=== PATIENT | female | born 1995 | race Caucasian/White ===

== ENCOUNTER 2018-05-15 11:31 | Inpatient (IN) ==
[2018-05-15] MEDS ORDERED: NS 1,000 ML IV ONE (12:16)
[2018-05-15] MEDS ORDERED: MORPHINE IV ONE ×3 (12:16→16:13)
[2018-05-15] MEDS ORDERED: ZOFRAN IV ONE (12:16)
[2018-05-15 12:41] LABS: URINE SOURCE CLEAN CATCH
[2018-05-15 12:46] LABS: BILIRUBIN URINE NEGATIVE (NEGATIVE); BLOOD URINE NEGATIVE (NEGATIVE); COLOR YELLOW; GLUCOSE URINE NEGATIVE (NEGATIVE); KETONE URINE NEGATIVE (NEGATIVE); LEUKOCYTES URINE LARGE (NEGATIVE); NITRITE URINE NEGATIVE (NEGATIVE); PROTEIN URINE 50 mg/dL (NEGATIVE); SP GRAVITY URINE 1.028; TURBIDITY URINE HAZY (CLEAR); UROBILINOGEN URINE 3 mg/dL (NORMAL)
[2018-05-15 12:46] LABS: BASO# 0.03 X1000 (0.0-0.2); BASO% 0.1 % (0.0-0.8); EOS# 0.12 X1000 (0.0-0.7); EOS% 0.5 % (0.0-10.0); HEMATOCRIT 43.5 % (37.0-47.0); HEMOGLOBIN 14.3 g/dL (12.0-16.0); IMM GRAN% 0.4 % (0.0-0.5); LYMPH# 2.29 X1000 (1.2-3.4); LYMPH% 9.3 % (20.5-51.1); MCH 30.8 PG (27-31); MCHC 32.9 g/dL (33-37); MCV 93.8 FL (81-99); MONO# 3.06 X1000 (0.11-0.59); MONO% 12.4 % (1.7-9.3); MPV 10.7 FL (7.4-10.4); NEUT# 19.09 X1000 (1.4-6.5); NEUT% 77.3 % (42.2-75.2); PLT 290 X1000 (130-400); RBC 4.64 XMIL (4.2-5.4); RDW 13.5 % (11.5-14.5); WBC 24.69 X1000 (4.8-10.8)
[2018-05-15 12:47] LABS: UR EPITHELIAL CELLS >10 /HPF (<10); URINE BACTERIA 2+ /HPF; URINE RBC <10 /HPF (<10); URINE WBC TNTC /HPF (<10)
[2018-05-15] MEDS ORDERED: MEFOXIN 2 GM/NS 2 GM/50 ML IVPB IV ONE (12:49)
[2018-05-15 13:06] LABS: AGAP 13; ALB/GLOB RATIO 1.1; ALBUMIN 4.2 g/dL (3.5-5.0); ALKALINE PHOSPHATASE 90 U/L (32-104); BUN 9 mg/dL (8-22); CALCIUM 9.4 mg/dL (8.8-10.2); CHLORIDE 100 mmol/L (98-107); COSMO 273; CREATININE 0.7 mg/dL (0.5-0.9); ESTIMATED GFR > 60; GLUCOSE 99 mg/dL (70-104); GOT 9 U/L (10-30); GPT 9 U/L (10-36); POTASSIUM 4.1 mmol/L (3.5-5.1); SODIUM 137 mmol/L (136-145); TCO2 24 mmol/L (25-35); TOTAL BILIRUBIN 0.63 mg/dL (0.20-1.00); TOTAL PROTEIN 7.9 g/dL (6.3-8.3)
--- NOTE | 2018-05-15 14:18 | Diag Imaging Result Doc PS360 ---
EXAM: CT ABD/PELVIS W/IV CONT ONLY INDICATION: RLQ abdominal pain, suspecting acute appendicitis TECHNIQUE: This exam was performed using automated exposure control, adjustment of mA or kV according to patient size, and/or use of iterative reconstruction technique. COMPARISON: 08/25/2016 FINDINGS: The liver is somewhat prominent measuring up to 20 cm in the craniocaudal dimension in the coronal plane. The liver is unremarkable, otherwise. The gallbladder, spleen, pancreas, adrenal glands, kidneys, and urinary bladder are unremarkable. The appendix is identified and is normal. However, there is a serpentine dilated tubular structure containing fluid in the pelvis on the right with surrounding inflammatory stranding. This does not appear to represent bowel. It is suspicious for hydrosalpinx. It measures up to 2.5 cm in diameter. There is a similar smaller structure on the left that may represent left hydrosalpinx as well. Pelvic inflammatory disease cannot be excluded. Please correlate clinically. There is a 2.4 cm cystic structure that appears to be associated with the right ovary. The GI tract is grossly unremarkable. IMPRESSION: 1.Dilated and fluid-filled serpentine structure in the pelvis on the right and smaller similar structure on the left with surrounding inflammatory changes suspicious for hydrosalpinx. Pelvic inflammatory disease cannot be excluded. 2.Normal appendix. Electronically signed by Mike Santizo 05/15/2018 2:15 PM
[2018-05-15] MEDS ORDERED: DOXYCYCLINE 100 MG in NS 250 ML IV ONE (14:32)
[2018-05-15] MEDS ORDERED: ROCEPHIN 1 GM in NS 50 ML IV ONE (14:32)
[2018-05-15] MEDS ORDERED: FLAGYL PO ONE (15:12)
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
[2018-05-15] MEDS ORDERED: DEMEROL IV PRN (17:32)
[2018-05-15] MEDS ORDERED: SODIUM CHLORIDE 0.9% INJ PRN (17:32)
[2018-05-15] MEDS ORDERED: TYLENOL PO PRN (17:40)
[2018-05-15] MEDS ORDERED: FLAGYL 500 MG/NS 500 MG/100 ML IVPB IV SCH (18:00)
[2018-05-15] MEDS: LR 1,000 ML IV SCH (20:07)
[2018-05-15] MEDS: PHENERGAN IV PRN (20:08)
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
[2018-05-15] MEDS: ZOFRAN IV PRN (23:29)
[2018-05-15] MEDS: MORPHINE IV PRN (23:29)
[2018-05-16] MEDS: FLAGYL 500 MG/NS 500 MG/100 ML IVPB IV SCH ×2 (01:41→13:49)
[2018-05-16] MEDS: ROCEPHIN 1 GM in NS 50 ML IV SCH ×2 (01:41→13:49)
[2018-05-16] MEDS: MORPHINE IV PRN ×6 (03:19→23:36)
[2018-05-16] MEDS: DOXYCYCLINE 100 MG in NS 250 ML IV SCH ×2 (03:19→15:31)
[2018-05-16 07:41] LABS: BASO# 0.03 X1000 (0.0-0.2); BASO% 0.2 % (0.0-0.8); EOS% 0.6 % (0.0-10.0); HEMATOCRIT 38.9 % (37.0-47.0); HEMOGLOBIN 12.8 g/dL (12.0-16.0); IMM GRAN# 0.05 X1000 (0.0-0.04); IMM GRAN% 0.3 % (0.0-0.5); LYMPH# 2.75 X1000 (1.2-3.4); LYMPH% 15.3 % (20.5-51.1); MCH 30.9 PG (27-31); MCHC 32.9 g/dL (33-37); MONO% 14.4 % (1.7-9.3); MPV 10.9 FL (7.4-10.4); NEUT# 12.49 X1000 (1.4-6.5); NEUT% 69.2 % (42.2-75.2); PLT 270 X1000 (130-400); RBC 4.14 XMIL (4.2-5.4); RDW 13.4 % (11.5-14.5); WBC 18.02 X1000 (4.8-10.8)
[2018-05-16] MEDS: ZOFRAN IV PRN (07:54)
[2018-05-16] MEDS: LR 1,000 ML IV SCH ×2 (09:19→23:41)
[2018-05-17] MEDS: LR 1,000 ML IV SCH ×3 (00:45→22:12)
[2018-05-17] MEDS: ROCEPHIN 1 GM in NS 50 ML IV SCH ×3 (01:47→13:46)
[2018-05-17] MEDS: FLAGYL 500 MG/NS 500 MG/100 ML IVPB IV SCH ×2 (02:20→13:44)
[2018-05-17] MEDS: DOXYCYCLINE 100 MG in NS 250 ML IV SCH ×2 (03:37→14:54)
[2018-05-17] MEDS: MORPHINE IV PRN ×4 (03:37→22:07)
[2018-05-17 06:58] LABS: BASO# 0.04 X1000 (0.0-0.2); BASO% 0.2 % (0.0-0.8); EOS% 1.2 % (0.0-10.0); HEMATOCRIT 33.5 % (37.0-47.0); HEMOGLOBIN 10.8 g/dL (12.0-16.0); IMM GRAN# 0.07 X1000 (0.0-0.04); IMM GRAN% 0.4 % (0.0-0.5); LYMPH# 3.12 X1000 (1.2-3.4); LYMPH% 19.3 % (20.5-51.1); MCH 30.3 PG (27-31); MCHC 32.2 g/dL (33-37); MCV 94.1 FL (81-99); MONO# 2.52 X1000 (0.11-0.59); MONO% 15.6 % (1.7-9.3); MPV 10.9 FL (7.4-10.4); NEUT# 10.18 X1000 (1.4-6.5); NEUT% 63.3 % (42.2-75.2); PLT 251 X1000 (130-400); RBC 3.56 XMIL (4.2-5.4); RDW 13.3 % (11.5-14.5); WBC 16.13 X1000 (4.8-10.8)
[2018-05-17] MEDS: ZOFRAN IV PRN ×2 (07:45→15:52)
--- NOTE | 2018-05-17 11:17 | OB/GYN PROGRESS NOTE ---
Progress Note HEAD OF CONSERVATION - . Patient Problems: Current Active Problems Problem Status Onset Tobacco abuse disorder Acute PID (acute pelvic inflammatory disease) Acute Hydrosalpinx Acute HEAD OF CONSERVATION Progress Note: Vital Signs - 24 hr 05/16/18 12:37 05/16/18 16:31 05/16/18 20:28 Temperature 98.1 F 98.3 F 98.4 F Pulse Rate 62 74 81 Respiratory Rate 16 18 18 Blood Pressure 106/52 119/81 109/50 O2 Sat by Pulse Oximetry 100 95 100 05/17/18 03:00 05/17/18 07:59 Temperature 97.5 F L 98.0 F Pulse Rate 55 L 57 L Respiratory Rate 16 19 Blood Pressure 113/40 104/56 O2 Sat by Pulse Oximetry 100 99 05/15/18 12:51 Urine Culture - Final Urine,Clean Catch Escherichia Coli Laboratory Results - last 24 hr 05/17/18 06:29 WBC 16.13 H RBC 3.56 L Hgb 10.8 L D Hct 33.5 L MCV 94.1 MCH 30.3 MCHC 32.2 L RDW Std Deviation 13.3 Plt Count 251 MPV 10.9 H Immature Gran % (Auto) 0.4 Neut % (Auto) 63.3 Lymph % (Auto) 19.3 L [place] % (Auto) 15.6 H Eos % (Auto) 1.2 Baso % (Auto) 0.2 Immature Gran # (Auto) 0.07 H Neut # (Auto) 10.18 H Lymph # (Auto) 3.12 [place] # (Auto) 2.52 H Eos # (Auto) 0.20 Baso # (Auto) 0.04 Pain better, requesting shower AF VSS Alert, oriented Lungs: CTA + mild CVAT Abd: lower quadrant tenderness, no rebound Calves: Nontender Urine culture: E coli sensitive to Ceftriaxone Assess: UTI treated appropriately Possible PID, certainly suspicious for past PID event with hydrosalpinges Plan: Regular diet Continue antibiotics Probable discharge when afebrile and without tenderness x 48 hours Pt agreeable
[2018-05-17] MEDS: PHENERGAN IV PRN (22:10)
[2018-05-18] MEDS: ROCEPHIN 1 GM in NS 50 ML IV SCH ×3 (02:30→14:44)
[2018-05-18] MEDS: MORPHINE IV PRN ×2 (02:39→06:51)
[2018-05-18] MEDS: FLAGYL 500 MG/NS 500 MG/100 ML IVPB IV SCH ×2 (03:00→14:00)
[2018-05-18] MEDS: DOXYCYCLINE 100 MG in NS 250 ML IV SCH ×2 (04:00→15:18)
[2018-05-18] MEDS: LR 1,000 ML IV SCH ×3 (04:35→08:24)
--- NOTE | 2018-05-18 08:05 | OB/GYN PROGRESS NOTE ---
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 Only mild flank pain on right Remains afebrile, VSS Alert, oriented No right CVAT ABD: Soft, nontender CBC as above Assess: Pyelo under appropriate treatment PID, chronic, possible active component with antibiotic coverage; decreasing WBC and symptom trend. Plan: Probable home tomorrow if stability remains
[2018-05-18] MEDS: ZOFRAN IV PRN (08:53)
[2018-05-18 09:27] LABS: BASO# 0.03 X1000 (0.0-0.2); BASO% 0.2 % (0.0-0.8); EOS# 0.12 X1000 (0.0-0.7); EOS% 0.8 % (0.0-10.0); HEMATOCRIT 34.9 % (37.0-47.0); HEMOGLOBIN 11.4 g/dL (12.0-16.0); IMM GRAN# 0.06 X1000 (0.0-0.04); IMM GRAN% 0.4 % (0.0-0.5); LYMPH# 2.67 X1000 (1.2-3.4); LYMPH% 18.5 % (20.5-51.1); MCH 30.1 PG (27-31); MCHC 32.7 g/dL (33-37); MCV 92.1 FL (81-99); MONO# 1.82 X1000 (0.11-0.59); MONO% 12.6 % (1.7-9.3); MPV 10.4 FL (7.4-10.4); NEUT# 9.77 X1000 (1.4-6.5); NEUT% 67.5 % (42.2-75.2); PLT 285 X1000 (130-400); RBC 3.79 XMIL (4.2-5.4); RDW 13.2 % (11.5-14.5); WBC 14.47 X1000 (4.8-10.8)
[2018-05-19] MEDS: ROCEPHIN 1 GM in NS 50 ML IV SCH ×2 (01:35→02:10)
[2018-05-19] MEDS: LR 1,000 ML IV SCH ×2 (02:06→04:16)
[2018-05-19] MEDS: MORPHINE IV PRN ×2 (02:25→08:28)
[2018-05-19] MEDS: FLAGYL 500 MG/NS 500 MG/100 ML IVPB IV SCH (02:57)
[2018-05-19 07:42] VITALS: BP 110/63
[2018-05-19] MEDS: DOXYCYCLINE 100 MG in NS 250 ML IV SCH (08:14)
--- NOTE | 2018-05-20 04:46 | DISCHARGE SUMMARY ---
ADMISSION DATE: 05/15/2018 DISCHARGE DATE: 05/19/2018 HOSPITAL COURSE: Ms. Wilder is a pleasant 22-year-old G0 who was admitted on 05/15/2018 with right upper quadrant pain, right lower quadrant pain and right flank pain to [facility]. She was subsequently transferred to [facility] after a CT scan showed suspicious findings for pelvic inflammatory disease. She was admitted by Dr. Cadena on that day. She apparently did not receive cervical cultures, but did receive a urinary culture which eventually grew out E. Coli as source of her pyelonephritis. The findings on CT compatible with hydrosalpinges was also noted, and she was treated for pelvic inflammatory disease through the IV as well as urinary tract infection. Her antibiotics included ceftriaxone 1 g q.12 hours, doxycycline hyclate 100 mg q.12 hours, and Flagyl 500 mg q.12 hours. Over the course of 3 days she became afebrile, vital signs were stable and she was pain free. An extra 24 hours of medication and observation were continued and she remained stable. She is ambulating, tolerating diet, voiding without difficulty, and is ready for discharge in outpatient care. She is a long- term patient of Dr. Gavin Holloway and will follow with him in 2 weeks. PHYSICAL EXAMINATION: Vital Signs: Temperature is 98 degrees, pulse rate 80, respiration rate 17, blood pressure 110/63. General: She is alert and oriented. Lungs: Clear except for occasional rhonchi compatible with her smoking habit. There no rales. Cardiovascular: Regular rate and rhythm. No flank pain or no CVA tenderness is noted on exam on day of discharge. Abdomen: Soft without tenderness. Extremities: Calves are nontender. LABS: E. coli was grown from urine culture and showed sensitivity to ceftriaxone. ASSESSMENT: 1. Pyelonephritis, resolved with intravenous antibiotics. 2. Probable pelvic inflammatory disease, either chronic or acute in nature sufficiently treated intravenously in the hospital. We will continue antibiotics for a completion of 10 days, which will end 05/25/2018. PLAN: Discharge home. She is given doxycycline hyclate 100-mg capsule to be taken twice a day for an additional 7 days. She is not given any kind of analgesic as none is needed. She will follow up with Dr. Holloway in 2 weeks. She is instructed to return to the emergency department or office for any unusual fever or trouble breathing, pain or vaginal discharge. She states understanding. cc: MD Shaina Dawkins MD
== END 2018-05-19 12:00 | disposition home or self-care (01) | DRG 758 ==
LOC: ED 11:31 → P.MEDSURG 11:32
PROVIDERS: ADMIT Obstetrics & Gynecology; ATTEND Obstetrics & Gynecology
CPT/HCPCS: 74177; 80053; 81001; 81025; 85025; 87077; 87088; 87186; 96361; 96365; 96366; 96367; 96375; 96376; 99285; A9270; J0694; J0696; J2175; J2270; J2405; J2550; J7030; J7050; J7120; Q9967; S0030